=== PATIENT | female | born 1940 | race African-American/Black ===

== ENCOUNTER 2016-07-09 19:23 | Observation (INO) | payer OTHER ==
[~2016-07-09] VITALS: Ht 162.6 cm; Wt 65.0 kg
[~2016-07-09 19:23] MED LIST: ACTONEL75 MG PO; ALPRAZOLAM0.25 MG PO; ASPIRIN E.C.81 M1 PO; ASPIRIN81 M1 PO; ASPIRIN81 M2 PO; Advair 250/50 Diskus IH; CHOLESTYRAMINE L4 GM PO; CYMBALTA30 MG PO; DIGOXIN125 MCG PO; DOXYCYCLINE HY100 MG PO; DURAGESIC50 MCG TD; ENDOCET 10-3251 EACH PO; HYCODAN SYRUP480 ML PO; HYDROCHLOROTHIA25 MG PO; Hydrodiuril,Oretic,E PO; LOPRESSOR12.5 MG PO; LOPRESSOR25 MG PO; LORCET 10-6501 EACH PO; LORCET PO; Lanoxin,Digitek PO; Lopressor PO; METFORMIN HCL500 M1 PO; METOCLOPRAMIDE H5 MG PO; METOPROLOL SUCC25 MG PO; NEURONTIN300 MG PO; NIFEDICAL XL60 MG PO; ONE DAILY FOR1 EAC1 PO; OXYCODONE HCL10 MG PO; OxyCODONE PO; PENTOXIFYLLINE400 MG PO; PLAQUENIL200 MG PO; PRAVACHOL20 MG PO; PRILOSEC40 MG PO; PROAIR HFA8.5 GM IH; PROCARDIA XL60 MG PO; PROVENTIL HFA6.7 GM IH; Percocet 5/325,Endoc PO; Procardia XL,Adalat PO; Proventil,Ventolin H IH; QUESTRAN LIGHT P4 GM PO; REGLAN5 MG PO; SPIRIVA1 INHALATI IH; TRIAMCINOLONE A60 M1 TP; ZETIA10 MG PO; [UNRECOGNIZED DRUG - REMARK]; oxyCODONE PO; predniSONE PO
[2016-07-09 20:30] LABS: EOSINOPHIL (%) 1.8 % (0-5); EOSINOPHIL COUNT 0.1 K/uL (0-0.3); HEMATOCRIT 36.6 % (36.0-46.0); IMMATURE GRANULOCYTE (%) 0.2 % (0.0-0.7); INSTRUMENT ABS NEUTROPHIL CT 2.8 K/uL; LYMPHOCYTE COUNT 2.1 K/uL (1.0-2.8); MCH 28.1 PG (29.0-34.0); MCHC 32.2 G/DL (30.0-36.0); MCV 87.1 FL (83-99); MEAN PLAT.VOLUME 10.2 uM^3 (9.5-12.4); MONOCYTE (%) 5.7 % (3-12); MONOCYTE COUNT 0.3 K/uL (0-0.8); NEUTROPHIL (%) 52.3 % (45-76); NEUTROPHIL COUNT 2.8 K/uL (1.8-6.4); PLATELET COUNT 235 K/uL (156-360); RBC DIS.WIDTH-CV 12.7 % (11.8-14.6); WHITE BLOOD COUNT 5.4 K/uL (4.1-10.2)
[2016-07-09 20:40] LABS: INTER. NORMALIZED RATIO 1.1; PTT 27.8 (25-32)
[2016-07-09 20:43] LABS: CHLORIDE 108 mEq/L (99-109); MAGNESIUM 1.3 mg/dL (1.3-2.7); POTASSIUM 3.8 mEq/L (3.7-5.4); SODIUM 143 mEq/L (136-147)
[2016-07-09 20:45] LABS: GLUCOSE 123 mg/dL (70-99)
[2016-07-09 20:46] LABS: ANION GAP 12 MEQ/L (2-14)
[2016-07-09 20:48] LABS: GFR ESTIMATE (CALCULATED) > 59 mL/min/
[2016-07-09 20:49] LABS: UREA NITROGEN (BUN) 15 mg/dL (9-23)
[2016-07-09 20:51] LABS: TROP-I INTERPRETATION NEGATIVE; TROPONIN-I < 0.01 ng/mL (0.0-0.30)
[2016-07-09] MEDS ORDERED: LO-DOSE ASPIRIN81 M2 PO (22:41)
[2016-07-09] MEDS ORDERED: ENDOCET 7.5-321 EACH PO (22:41)
[2016-07-09] MEDS ORDERED: OMEPRAZOLE40 M1 PO (22:42)
[2016-07-09] MEDS ORDERED: ATORVASTATIN CA40 MG PO (22:43)
[2016-07-09] MEDS ORDERED: SPIRONOLACTONE25 MG PO (22:43)
[2016-07-09 23:55] VITALS: BP 158/74
[2016-07-10 00:15] LABS: POINT-OF-CARE METER ID UU14162513
[2016-07-10 03:01] LABS: TROP-I INTERPRETATION NEGATIVE; TROPONIN-I < 0.01 ng/mL (0.0-0.30)
[2016-07-10 03:58] VITALS: BP 113/57
[2016-07-10 07:43] VITALS: BP 140/66
[2016-07-10 08:41] LABS: POINT-OF-CARE METER ID UU14162513
[2016-07-10 08:59] LABS: HEMATOCRIT 36.1 % (36.0-46.0); MCH 28.1 PG (29.0-34.0); MCHC 32.4 G/DL (30.0-36.0); MCV 86.8 FL (83-99); MEAN PLAT.VOLUME 10.3 uM^3 (9.5-12.4); PLATELET COUNT 232 K/uL (156-360); RBC DIS.WIDTH-CV 12.7 % (11.8-14.6); RBC DIS.WIDTH-SD 39.7 % (39-53); RED BLOOD COUNT 4.16 M/uL (3.80-5.20); WHITE BLOOD COUNT 4.6 K/uL (4.1-10.2)
[2016-07-10 09:30] LABS: TROP-I INTERPRETATION NEGATIVE; TROPONIN-I < 0.01 ng/mL (0.0-0.30)
[2016-07-10 09:31] LABS: ANION GAP 11 MEQ/L (2-14); CHLORIDE 107 MEQ/L (99-109); SAMPLE HEMOLYSIS CHECK 0; SAMPLE ICTERIC CHECK 0; SAMPLE LIPEMIA CHECK 0; SODIUM 142 MEQ/L (136-147)
[2016-07-10 09:36] LABS: GFR ESTIMATE (CALCULATED) > 59 mL/min/; GLUCOSE 116 mg/dL (70-99); UREA NITROGEN (BUN) 10 mg/dL (9-23)
[2016-07-10] MEDS ORDERED: NITROSTAT0.4 MG SL (10:47)
== END 2016-07-10 11:55 | disposition home or self-care (01) ==
LOC: EME → EDBD 19:23 → EME 19:23 → EDOF 23:00 → 5WEST 23:00
PROVIDERS: Emergency Medicine; Hospitalist; Internal Medicine
DX: R07.89 Other chest pain (principal); I10 Essential (primary) hypertension; E78.5 Hyperlipidemia, unspecified; I73.9 Peripheral vascular disease, unspecified; G89.29 Other chronic pain; K21.9 Gastro-esophageal reflux disease without esophagitis; Z85.3 Personal history of malignant neoplasm of breast; Z85.118 Personal history of other malignant neoplasm of bronchus and lung; Z98.1 Arthrodesis status; Z87.891 Personal history of nicotine dependence
CPT/HCPCS: 71010; 71250; 80048; 82948; 83735; 84484; 85025; 85027; 85610; 85730; 93005; 99202; 99281; 99285; G0378; J2405

== ENCOUNTER 2017-12-21 18:01 | Emergency (ER) | payer OTHER ==
[~2017-12-21] VITALS: Ht 167.6 cm; Wt 67.0 kg
[~2017-12-21 18:01] MED LIST changes: +ATORVASTATIN CA40 MG PO; +ENDOCET 7.5-321 EACH PO; +LO-DOSE ASPIRIN81 M2 PO; +NITROSTAT0.4 MG SL; +OMEPRAZOLE40 M1 PO; +SPIRONOLACTONE25 MG PO
[2017-12-21 19:55] LABS: ALBUMIN 4.8 g/dL (3.2-4.8); CHLORIDE 105 mEq/L (99-109); POTASSIUM 3.9 mEq/L (3.7-5.4); SODIUM 140 mEq/L (136-147)
[2017-12-21 19:58] LABS: GLUCOSE 84 mg/dL (70-99); TOTAL PROTEIN 7.9 g/dL (6.4-8.3)
[2017-12-21 19:59] LABS: TOTAL BILIRUBIN 0.5 mg/dL (0.0-1.0)
[2017-12-21 20:01] LABS: ALKALINE PHOSPHATASE 107 IU/L (3-129); CREATININE 0.9 mg/dL (0.6-1.3); GFR ESTIMATE (CALCULATED) > 59 mL/min/
[2017-12-21 20:02] LABS: UREA NITROGEN (BUN) 14 mg/dL (9-23)
[2017-12-21 20:03] LABS: AST (GOT) 17 IU/L (2-34)
[2017-12-21 20:04] LABS: ALT (GPT) 13 IU/L (3-49)
[2017-12-21 20:05] LABS: LIPASE 28 U/L (1.0-51.0)
[2017-12-21 20:39] LABS: HEMATOCRIT 40.8 % (36.0-46.0); HEMOGLOBIN 13.5 G/DL (11.9-15.5); MCH 29.5 PG (29.0-34.0); MCHC 33.1 G/DL (30.0-36.0); MCV 89.1 FL (83-99); RBC DIS.WIDTH-CV 12.2 % (11.8-14.6); RBC DIS.WIDTH-SD 39.6 % (39-53); RED BLOOD COUNT 4.58 M/uL (3.80-5.20); WHITE BLOOD COUNT 5.2 K/uL (4.1-10.2)
[2017-12-21 20:39] LABS: APPEARANCE CLEAR ((CLEAR)); BILIRUBIN NEGATIVE; BLOOD NEGATIVE; COLOR STRAW ((YELLOW)); GLUCOSE (STRIP) NEGATIVE; KETONES NEGATIVE; LEUKOCYTES TRACE; NITRITE NEGATIVE; PROTEIN (STRIP) NEGATIVE; SPECIFIC GRAVITY 1.012 (1.000-1.030); UROBILINOGEN 0.2 MG/DL (0.2-1.0)
[2017-12-21 20:44] LABS: BACTERIA NONE SEEN /HPF; EPITHELIAL CELLS RARE /HPF; MUCUS NONE SEEN /LPF; RED BLOOD CELLS 0-5 /HPF (0-5); UCUL ADDED? NO; WHITE BLOOD CELLS 0-5 /HPF (0-5)
[2017-12-21] MEDS ORDERED: COLACE100 MG PO (21:01)
[2017-12-21 21:04] VITALS: BP 161/75
[2017-12-21 21:09] LABS: PLAT.SUFFICIENCY ADEQUATE; PLATELET COUNT 152 K/uL (156-360)
== END 2017-12-21 21:22 | disposition home or self-care (01) ==
LOC: EME 18:01
DX: K59.00 Constipation, unspecified (principal); R10.2 Pelvic and perineal pain; M54.9 Dorsalgia, unspecified; R11.0 Nausea; M79.604 Pain in right leg; M79.605 Pain in left leg; Z90.49 Acquired absence of other specified parts of digestive tract; Z90.710 Acquired absence of both cervix and uterus; E78.5 Hyperlipidemia, unspecified; I10 Essential (primary) hypertension; Z79.84 Long term (current) use of oral hypoglycemic drugs; Z79.82 Long term (current) use of aspirin; Z85.3 Personal history of malignant neoplasm of breast; Z92.3 Personal history of irradiation; Z87.891 Personal history of nicotine dependence
CPT/HCPCS: 74177; 80053; 81003; 83690; 85027; 99281; 99285; J2405; J3010; J7030